=== PATIENT | male | born 1980 | race Hispanic/Latino ===

== ENCOUNTER 2018-06-13 12:47 | Emergency (ER) | payer OTHER ==
[~2018-06-13] VITALS: Ht 170.2 cm; Wt 99.8 kg
--- OUTSIDE RECORDS SUMMARY | ~2018-06-13 | XMS | Clinical Summary ---
Demographics + + + | Address | [address] | | | [place] [address] | + + + | Home Phone | | + + + | Preferred Language | Unknown | + + + | Marital Status | Single | + + + | Scientologist Affiliation | [id number] | + + + | Race | Unknown | + + + | Ethnic Group | Unknown | + + + Author + + + | Author | [facility] | | | and [place] | + + + | Organization | [facility] | | | and [place] | + + + | Address | Unknown | + + + | Phone | Unavailable | + + + Support + + + + + | Name | Relationship | Address | Phone | + + + + + | Libby Concepcion | ECON | [place], [place] | | | | | [phone] | | + + + + + | Sandra Gasca | ECON | [address] | | | | | [place], [place] | | | | | [address] | | + + + + + Care Team Providers + +------+ + | Care Tool Storage Attendant Name | Role | Phone | + +------+ + PP | Unavailable | + +------+ + Allergies Not on File Current Medications Not on file Active Problems Not on file Social History + +-------+ +--------+------+ | Tobacco Use | Types | Packs/Day | Years | Date | | | | | Used | | + +-------+ +--------+------+ | Never Assessed | | | | | + +-------+ +--------+------+ + + + | Sex Assigned at | Date Recorded | | | | + + + | Not on file | | + + + Plan of Treatment + + + + + | Health Maintenance | Due Date | Last Done | Comments | + + + + + | Vaccine: | | | | | Dtap/Tdap/Td (1 - | 0 | | | | Tdap) | | | | + + + + + | Vaccine: Influenza | | | | | (#1) | 8 | | | + + + + + Results Not on filefrom Last 3 Months"
--- OUTSIDE RECORDS SUMMARY | ~2018-06-13 | XMS | Clinical Summary ---
Demographics + + + | Address | [address] | | | [place] [address] | + + + | Home Phone | | + + + | Preferred Language | Unknown | + + + | Marital Status | Single | + + + | Taoism Affiliation | 1041 | + + + | Race | Unknown | + + + | Ethnic Group | Unknown | + + + Author + + + | Author | [facility] | | | and [place] | + + + | Organization | [facility] | | | and [place] | + + + | Address | Unknown | + + + | Phone | Unavailable | + + + Support + + + + + | Name | Relationship | Address | Phone | + + + + + | Libby Concepcion | ECON | [place], [place] | | | | | [address] | | + + + + + | Sandra Gasca | ECON | [address] | | | | | [place], [place] | | | | | [address] | | + + + + + Care Team Providers + +------+ + | Care Computer Console Operator Name | Role | Phone | + [...]
[~2018-06-13 12:47] MED LIST: ACETAMINOPHEN-1 EAC1 PO; BIAXIN500 MG PO; CEPHALEXIN500 MG PO; FLAGYL500 MG PO; NORCO 10-325 T1 EACH PO; PREVACID30 MG PO; TAMIFLU75 MG PO
== END 2018-06-13 13:42 | disposition home or self-care (01) ==
LOC: ED 12:47
DX: S93.402A Sprain of unspecified ligament of left ankle, initial encounter (principal); X50.9XXA Other and unspecified overexertion or strenuous movements or postures, initial encounter; Y99.0 Civilian activity done for income or pay; Z88.5 Allergy status to narcotic agent; Z88.0 Allergy status to penicillin; Z88.8 Allergy status to other drugs, medicaments and biological substances
CPT/HCPCS: 73610; 99283

== ENCOUNTER 2020-09-30 07:04 | Emergency (ER) | payer OTHER ==
[~2020-09-30] VITALS: Ht 170.2 cm; Wt 99.8 kg
[2020-09-30] MEDS ORDERED: PERCOCET 7.5-31 EACH PO (10:08)
== END 2020-09-30 11:17 | disposition home or self-care (01) ==
LOC: ED 07:04
DX: N13.2 Hydronephrosis with renal and ureteral calculous obstruction (principal); Z87.891 Personal history of nicotine dependence; Z88.5 Allergy status to narcotic agent; Z88.0 Allergy status to penicillin; Z88.8 Allergy status to other drugs, medicaments and biological substances
CPT/HCPCS: 74176; 80053; 81001; 85025; 96374; 99284-25; J1885; J7030

== ENCOUNTER 2024-12-02 15:19 | Emergency (ER) | payer OTHER ==
[~2024-12-02] VITALS: Ht 170.2 cm; Wt 101.0 kg
[~2024-12-02 15:19] MED LIST changes: +CYCLOBENZAPRINE10 MG PO; +NAPROSYN500 MG PO; +OXYCODONE-ACET1 EAC1 PO; +PERCOCET 7.5-31 EACH PO; +PREDNISONE20 MG PO
[2024-12-02] MEDS ORDERED: IBU600 MG PO (17:23)
[2024-12-02] MEDS ORDERED: IBUPROFEN 600 MG TAB PO ONE (17:30)
[2024-12-02 17:40] VITALS: BP 146/93
== END 2024-12-02 17:41 | disposition home or self-care (01) ==
LOC: ED 15:19
DX: S22.32XA Fracture of one rib, left side, initial encounter for closed fracture (principal); W01.198A Fall on same level from slipping, tripping and stumbling with subsequent striking against other object, initial encounter; Z87.891 Personal history of nicotine dependence
CPT/HCPCS: 71101; 99283

== ENCOUNTER 2024-12-06 10:04 | Emergency (ER) | payer OTHER ==
[~2024-12-06] VITALS: Ht 170.2 cm; Wt 105.6 kg
[~2024-12-06 10:04] MED LIST changes: +IBU600 MG PO
--- OUTSIDE RECORDS SUMMARY | 2024-12-06 10:11 | XMS ---
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 Gay has no Care Guidelines for this patient. [facility] (12 MO.) [facility] T[facility] 2 NOTE: Visits indicate total known visits. ED/C VISIT TRACKING (12 MO.) [facility]06[facility]24 10:[facility] [place] [facility] COMPLAINT: - CHEST PAIN 12/02/2024 15:[address] [facility] TYPE: Emergency COMPLAINT: - FELL INJURED RT FLANK DIAGNOSES: - Fall on same level from slipping, tripping and stumbling with subsequent striking against other object, initial encounter - Fracture of one rib, left side, initial encounter for closed fracture - Personal history of nicotine dependence - Pleurodynia INPATIENT VISIT TRACKING (12 MO.) No inpatient visits to display in this time frame [email or web address]
[2024-12-06] MEDS ORDERED: ASPIRIN 81 MG CHEW PO ONE (10:15)
[2024-12-06 10:20] LABS: BASOPHILS 0.8 % (0.2-1.2); EOSINOPHILS 1.6 % (0.8-7.0); LYMPHOCYTES 46.3 % (21.8-53.1); MCH 30.3 PG (25.7-32.2); MCHC 34.5 g/dL (32.3-36.5); MCV 87.8 fL (79.0-92.2); MONOCYTES 5.1 % (5.3-12.2); NEUTROPHILS 45.7 % (34.0-67.9); RBC 5.34 M/uL (4.63-6.08)
[2024-12-06] MEDS ORDERED: HYDROmorphone HCL 1 MG/ML SYR IV ONE (10:30)
[2024-12-06 10:44] LABS: ALT (SGPT) 41 U/L (14-59); AST (SGOT) 33 U/L (15-37); GLOMERULAR FILTRATION RATE,EST 111 mL/min (>60); PROTEIN, TOTAL 8.0 g/dL (6.4-8.2); UREA NITROGEN 7 mg/dL (7-18)
[2024-12-06 12:27] VITALS: BP 105/58
[2024-12-06] MEDS ORDERED: HYDROCODON-ACE1 EAC8 PO (12:33)
--- NOTE | 2024-12-08 16:06 | EKG ---
[facility] [address] [place] [address] Signed Normal sinus rhythm Incomplete right bundle branch block Minimal voltage criteria for LVH, may be normal variant ( [place] product ) Borderline ECG When compared with ECG of 10-OCT-2022 01:30, No significant change was found Confirmed by Isaiah Luong MD () on 12/08/2024 4:06:26 PM Electronically Signed By: ISAIAH LUONG MD 12/08/24 1606 PATIENT NAME: DULCE FRYE Electrocardiogram DATE OF : 80 PHYSICIAN: ISAIAH LUONG MD REPORT #: [id number] REPORT IS CONFIDENTIAL AND NOT TO BE RELEASED WITHOUT AUTHORIZATION
== END 2024-12-06 12:36 | disposition home or self-care (01) ==
LOC: ED 10:04
PROVIDERS: Emergency Medicine
DX: R07.89 Other chest pain (principal); Z87.891 Personal history of nicotine dependence; Z88.5 Allergy status to narcotic agent; Z88.0 Allergy status to penicillin; Z88.8 Allergy status to other drugs, medicaments and biological substances; Z88.6 Allergy status to analgesic agent
CPT/HCPCS: 36415; 71045; 71250; 80053; 83735; 84484; 85025; 93005; 93010; 96374; 96375; 99284-25; J1171; J2405